=== PATIENT | male | born 1940 | race Caucasian/White ===

== ENCOUNTER 2018-08-15 12:43 | Outpatient (CLI) | payer MEDICARE | END 2018-08-15 12:44 | disposition short-term general hospital (02) | LOC: EMS 12:43 | PROVIDERS: ATTEND Surgery | DX: R07.9 Chest pain, unspecified (principal) | CPT/HCPCS: A0170; A0425; A0427 ==

== ENCOUNTER 2022-08-16 16:36 | Emergency (ER) | payer MEDICARE, OTHER ==
--- OUTSIDE RECORDS SUMMARY | 2022-08-16 16:50 | EXTERNAL MEDICAL SUMMARY RPT | Continuity of Care Document ---
:1940 Author Organization [facility] Address [address] [place] [address] Phone Care Team Providers Name Role Phone Unavailable Unavailable Unavailable Celio Mcelroy Md Unavailable Unavailable Allergies No information. Encounters No information. Functional Status No information. Immunizations No information. Medications date description facility 2022-08-16 00:00 [facility]ildenafil [facility] [place] 2022-08-16 00:00 sildenafil [facility] [place] 2022-08-16 00:00 sildenafil [facility] [place] 2022-08-16 00:00 sildenafil [facility] [place] Problems date description facility 2022-08-16 00:00 Atypical chest pain [facility] [place] 2022-08-16 00:00 Cough [facility] [place] 2022-08-16 00:00 Pulmonary congestion [facility] [place] 2022-08-16 00:00 Hemoptysis, unspecified [facility] [place] 2022-08-16 00:00 Other symptoms involving [facility] Anc[facility] S ervices [place] 2022-08-16 00:00 Hemoptysis [facility] [place] 2022-08-16 00:00 Acute cough [facility] [place] 2022-08-16 00:00 Other chest pain [facility] 2022-08-16 00:00 Other specified symptoms and signs [facility] & involving the circulatory and Anc[facility] Services [place] respiratory systems Procedures date description facility 2022-08-16 00:00 Visit Code Hold [facility] 2022-08-16 00:00 COVID, FLU A+B Antigen (In Clinic [facility] & Free Test) [facility] [place] Results/Labs No information. Social History date description facility 2022-08-16 00:00 Former smoker [facility] [place] Vital Signs date measurement value units 2022-08-16 00:00 BMI 27.54 kg/m2 2022-08-16 00:00 BP_diastolic 80 mmHg 2022-08-16 00:00 BP_systolic 147 mmHg 2022-08-16 00:00 heart_rate 87 /min 2022-08-16 00:00 height_metric 167.64 cm 2022-08-16 00:00 height_standard 66 in 2022-08-16 00:00 respiration_rate 16 /min 2022-08-16 00:00 temperature_metric 37.17 C 2022-08-16 00:00 temperature_standard 98.9 F 2022-08-16 00:00 weight_metric 77.11 kg 2022-08-16 00:00 weight_standard 170 lb
[2022-08-16 16:56] LABS: BASOPHILS % (AUTO) 0.4 %; EOSINOPHILS # (AUTO) 0.1 10^3/uL (0.0-0.7); EOSINOPHILS % (AUTO) 1.1 %; HCT - HEMATOCRIT 47.9 % (42.0-52.0); HGB - HEMOGLOBIN 15.7 g/dL (14.0-18.0); LYMPHOCYTES # (AUTO) 1.6 10^3/uL (1.5-3.5); LYMPHOCYTES % (AUTO) 14.3 %; MEAN CORPUSCULAR HEMOGLOBIN 32.2 pg (27.0-31.0); MEAN CORPUSCULAR HGB CONC 32.8 g/dL (32.0-36.0); MEAN CORPUSCULAR VOLUME 98.2 fL (80.0-94.0); MEAN PLATELET VOLUME 9.4 fL (7.4-11.4); MONOCYTES # (AUTO) 1.2 10^3/uL (0.0-1.0); MONOCYTES % (AUTO) 10.6 %; NEUTROPHILS # (AUTO) 8.1 10^3/uL (1.5-6.6); NEUTROPHILS % (AUTO) 73.2 %; PLT - PLATELET COUNT 382 10^3/uL (130-450); RED BLOOD COUNT 4.88 10^6/uL (4.70-6.10); RED CELL DISTRIBUTION WIDTH 12.5 % (12.0-15.0); WHITE BLOOD COUNT 11.1 x10^3/uL (4.8-10.8)
[2022-08-16 17:04] LABS: CALCIUM 9.3 mg/dL (8.5-10.3); CREATININE 1.1 mg/dL (0.6-1.2)
[2022-08-16] MEDS ORDERED: iohexoL-300 100 ML VIAL ONE (17:10)
[2022-08-16] MEDS ORDERED: iohexoL-300 100 ML VIAL IVP ONE (17:40)
--- NOTE | 2022-08-16 18:21 | CT Report ---
PROCEDURE: ANGIO CHEST W/WO INDICATIONS: hemoptysis, pe protocol CONTRAST: 80mL Gamt400 TECHNIQUE: After the administration of intravenous contrast, 2 mm axial images were acquired from the pulmonary apices to the posterior costophrenic angles during the arterial phase. In addition, 1 mm lung kernel and 5 mm soft tissue kernel reconstructions were performed. 3-dimensional coronal oblique maximum int ensity projection (MIP) reformats, 8 mm axial MIP, and 5 mm coronal and sagittal MPR reformats were t hen performed through the thorax. For radiation dose reduction, the following was used: automated exp osure control, adjustment of mA and/or kV according to patient size. COMPARISON: None. FINDINGS: Image quality: Excellent. Pulmonary arteries: Pulmonary arteries are normal in size, and demonstrate no intraluminal filling d efects to suggest central pulmonary embolism. Lungs and pleura: Within the superior aspect of the left lower lobe, masslike consolidation can be s een, measuring 4.4 x 4.4 cm in greatest axial dimension. Surrounding inflammatory/infiltrative change s can be seen. Adjacent pleural thickening can be seen. The lungs otherwise appear clear. No pleural effusions or pneumothorax. Central and peripheral airways are patent. Mediastinum: Heart size is normal, without pericardial effusion. Borderline enlarged mediastinal lym ph nodes are seen, with including an AP window lymph node measuring 16 x 9 mm. Thoracic aorta is norm al in caliber and enhancement. Moderate coronary artery calcification is seen. Esophagus is normal i n caliber, without hiatal hernia. Bones and chest wall: Mild sclerosis can be seen within the C7 vertebral body. Ribs and thoracic spin e appear intact throughout. No axillary or supraclavicular adenopathy. The thyroid is small in size . Abdomen: Gallstones can be seen, as on series 5 image 155 as well as at the fundus, as on series 5 im age 144. An accessory splenule is incidentally noted along the anterior aspect of the primary spleen . Along the posterior aspect of the left kidney, there is a low-density lesion seen that measures 20 Hounsfield units. The visualized portions of the upper abdominal structures are otherwise within nor mal limits. IMPRESSION: Negative for pulmonary embolism. There is a 4.4 cm mass involving the left lower lobe, which is highly suspicious for primary lung can cer. Borderline enlarged mediastinal lymph nodes are seen, which may represent metastatic disease. Mild sclerosis can be seen within the C7 vertebral body. Please consider degenerative change versus m etastatic disease. Along the posterior aspect of the left kidney, there is a low-density lesion seen, which cannot be de fined as a simple cyst, yet may relate to a hyperdense cyst. For further evaluation please consider a dedicated renal ultrasound for further evaluation. Additional findings: Moderate coronary artery calcification Gallstones Accessory splenule Note: Case discussed by telephone with Dr. Gann at 5:18 PM [place] time on 08/16/2022. Reviewed by: Huber Cobos MD on 08/16/2022 5:19 PM [place] Approved by: Huber Cobos MD on 08/16/2022 5:19 PM [facility] Station ID: [id number]
[2022-08-16] MEDS ORDERED: AMOX/CLAV 875 MG/125 MG TABLET PO STA (18:36)
[2022-08-16] MEDS ORDERED: DOXYCYCLINE 100 MG TABLET PO STA (18:36)
--- NOTE | 2022-08-16 18:38 | ED Physician Documentation ---
History of Present Illness - Stated complaint Stated Complaint: COUGH - Chief complaint Chief Complaint: Resp - History obtained from History obtained from: Patient - History of Present Illness Timing: How many weeks ago (4) Pain level max: 0 Pain level now: 0 - Additonal information Additional information: 81 year old male with cough and congestion for the past several weeks. Patient states he was recently treated with antibiotics. Patient states he recently had pneumonia. He went to the walk-in clinic today and told him that he was coughing up blood. He is not having any chest pain currently. No shortness of breath. He was sent here to rule out PE. No fevers. No chills. Nothing makes it better or worse Review of Systems Constitutional: denies: Fever, Chills Nose: reports: Rhinorrhea / runny nose, Congestion Respiratory: reports: Cough, Hemoptysis (Small amount of blood in the sputum). denies: Wheezing GI: denies: Vomiting, Diarrhea Skin: denies: Rash Musculoskeletal: denies: Neck pain, Back pain Neurologic: denies: Headache PD PAST MEDICAL HISTORY - Past Medical History Past Medical History: Yes : Other (Erectile dysfunction) - Present Medications Home Medications: Ambulatory Orders Medication Instructions Recorded Confirmed Amox/Clav 875/125 [Augmentin] 1 tab PO Q12H #20 tablet 08/16/22 Doxycycline Hyclate 100 mg PO BID #20 tab 08/16/22 - Allergies Allergies/Adverse Reactions: Allergies Allergy/AdvReac Type Severity Reaction Status Date / Time No Known Drug Allergies Allergy Verified 08/16/22 16:41 - Living Situation Living Situation: reports: With family Living Arrangement: reports: At home - Social History Does the pt smoke?: No Does the pt have substance abuse?: No PD ED PE NORMAL - Vitals Vital signs reviewed: Yes - General General: Alert and oriented X 3, No acute distress - HEENT HEENT: Moist mucous membranes - Neck Neck: Supple, no meningeal sign - Cardiac Cardiac: RRR, Strong equal pulses - Respiratory Respiratory: No respiratory distress, Clear bilaterally - Abdomen Abdomen: Soft, Non tender, Non distended - Derm Derm: Warm and dry - Extremities Extremities: No edema, No calf tenderness / cord - Neuro Neuro: Alert and oriented X 3 - Psych Psych: Normal mood, Normal affect Results - Vitals Vitals: Oxygen O2 Source Room air - Labs Labs: Laboratory Tests 08/16/22 08/16/22 16:50 16:50 WBC 11.1 H RBC 4.88 Hgb 15.7 Hct 47.9 MCV 98.2 H MCH 32.2 H MCHC 32.8 RDW 12.5 Plt Count 382 MPV 9.4 Neut # (Auto) 8.1 H Lymph # (Auto) 1.6 [place] # (Auto) 1.2 H Eos # (Auto) 0.1 Baso # (Auto) 0.0 Absolute Nucleated RBC 0.00 Nucleated RBC % 0.0 Sodium 137 Potassium 4.0 Chloride 101 Carbon Dioxide 27 Anion Gap 9.0 BUN 21 H Creatinine 1.1 Estimated GFR (MDRD) 65 L Glucose 125 H Calcium 9.3 - Rads (name of study) CT angio chest Radiology: Final report received, See rad report PD Medical Decision Making - ED course Complexity details: reviewed results, re-evaluated patient, considered differential, d/w patient ED course: Patient with an ongoing cough, concern regarding pneumonia from the walk-in clinic versus PE. He was sent here for CT angiogram of the chest. The CT angiogram of the chest shows what appears to be a mass in the left lower lung. Patient is still coughing and does appear to have inflammation around the mass in the left lower lung. We will place on antibiotics for possible pneumonia versus secondary infection. He does have a leukocytosis as well on CBC. His chemistry panel does not show any significant abnormalities other than a mildly elevated glucose and a mildly elevated BUN. Patient will need close follow-up with his PCP for further evaluation of the lung mass. Patient and family counseled regarding signs and symptoms for which I believe and urgent re- evaluation would be necessary. Patient with good understanding of and agreement to plan and is comfortable going home at this time This document was made in part using voice recognition software. While efforts are made to proofread this document, sound alike and grammatical errors may occur. Departure - Departure Disposition: 01 Home, Self Care Clinical Impression: Lung mass Pneumonia Qualifiers: Pneumonia type: due to unspecified organism Laterality: left Lung location: unspecified part of lung Qualified Code(s): J18.9 - Pneumonia, unspecified organism Condition: Good Instructions: ED Pneumonia Adult Follow-Up: your,doctor tomorrow [Other] Prescriptions: Amox/Clav 875/125 [Augmentin] 1 tab PO Q12H #20 tablet Doxycycline Hyclate 100 mg PO BID #20 tab Comments: Please follow-up with your doctor for further care. Please return if you worsen. Please take all antibiotics until gone. There does appear to be a mass on your chest CT today. This will need further evaluation with your doctor and likely a biopsy and a referral to a blow machine tender starch spraying. The CT reading is below. Your prescriptions were sent to [facility] in [place]. FINDINGS: Image quality: Excellent. Pulmonary arteries: Pulmonary arteries are normal in size, and demonstrate no intraluminal filling defects to suggest central pulmonary embolism. Lungs and pleura: Within the superior aspect of the left lower lobe, masslike consolidation can be seen, measuring 4.4 x 4.4 cm in greatest axial dimension. Surrounding inflammatory/infiltrative changes can be seen. Adjacent pleural thickening can be seen. The lungs otherwise appear clear. No pleural effusions or pneumothorax. Central and peripheral airways are patent. Mediastinum: Heart size is normal, without pericardial effusion. Borderline enlarged mediastinal lymph nodes are seen, with including an AP window lymph node measuring 16 x 9 mm. Thoracic aorta is normal in caliber and enhancement. Moderate coronary artery calcification is seen. Esophagus is normal in caliber, without hiatal hernia. Bones and chest wall: Mild sclerosis can be seen within the C7 vertebral body. Ribs and thoracic spine appear intact throughout. No axillary or supraclavicular adenopathy. The thyroid is small in size. Abdomen: Gallstones can be seen, as on series 5 image 155 as well as at the fundus, as on series 5 image 144. An accessory splenule is incidentally noted along the anterior aspect of the primary spleen. Along the posterior aspect of the left kidney, there is a low-density lesion seen that measures 20 Hounsfield units. The visualized portions of the upper abdominal structures are otherwise within normal limits. IMPRESSION: Negative for pulmonary embolism. There is a 4.4 cm mass involving the left lower lobe, which is highly suspicious for primary lung cancer. Borderline enlarged mediastinal lymph nodes are seen, which may represent metastatic disease. Mild sclerosis can be seen within the C7 vertebral body. Please consider degenerative change versus metastatic disease. Along the posterior aspect of the left kidney, there is a low-density lesion seen, which cannot be defined as a simple cyst, yet may relate to a hyperdense cyst. For further evaluation please consider a dedicated renal ultrasound for further evaluation. Additional findings: Moderate coronary artery calcification Gallstones Accessory splenule Discharge Date/Time: 08/16/22 18:52
[2022-08-16 18:51] VITALS: BP 145/79
== END 2022-08-16 18:52 | disposition home or self-care (01) ==
LOC: ED 16:36
DX: J18.9 Pneumonia, unspecified organism (principal); R91.8 Other nonspecific abnormal finding of lung field
CPT/HCPCS: 36415; 71275; 80048; 85025; 99284; A9270; Q9967

== ENCOUNTER 2023-02-26 08:02 | Emergency (ER) | payer OTHER ==
--- OUTSIDE RECORDS SUMMARY | 2023-02-26 08:41 | EXTERNAL MEDICAL SUMMARY RPT | Continuity of Care Document ---
Author Name Unknown Address [address] [place] [address] Phone Organization [facility] Address [address] [place] [address] Phone Care Team Providers Care Insulation Nozzleman Name Role Phone Unavailable Unavailable Unavailable Joreg Luis Elizondo Pa-C Unavailable Unavailable Luigi Patient Registrar, Akira Unavailable U navailable Luigi Patient Registrar, Akira Unavailable U navailable Medications date description facility 2023-02-16 00:00 sildenafil [facility] [place] 2023-02-16 00:00 [facility]enafil [facility] [place] 2023-02-17 00:00 [facility]ildenafil [facility] [place] 2023-02-16 00:00 sildenafil [facility] [place] 2023-02-16 00:00 sildenafil [facility] [place] 2023-02-17 00:00 sildenafil [facility] [place] 2023-02-16 00:00 sildenafil [facility] [place] 2023-02-16 00:00 sildenafil [facility] [place] 2023-02-17 00:00 sildenafil [facility] [place] 2023-02-16 00:00 sildenafil [facility] [place] 2023-02-16 00:00 sildenafil [facility] [place] 2023-02-17 00:00 sildenafil [facility] [place] Problems date description facility 2023-02-16 00:00 Blood in urine [facility] [place] 2023-02-16 00:00 Blood in urine [facility] [place] 2023-02-16 00:00 Blood in urine [facility] [place] 2023-02-16 00:00 Hematuria, unspecified [facility] [place] 2023-02-16 00:00 Hematuria, unspecified [facility] [place] 2023-02-16 00:00 Hematuria, unspecified [facility] [place] Procedures date description facility 2023-02-16 00:00 Visit Code Hold [facility] [place] 2023-02-16 00:00 Visit Code Hold [facility] [place] 2023-02-16 00:00 Visit Code Hold [facility] [place] 2023-02-16 00:00 POC URINALYSIS DIP [facility] [place] 2023-02-16 00:00 POC URINALYSIS DIP [facility] [place] 2023-02-16 00:00 POC URINALYSIS DIP [facility] [place] Results/Labs test date facility value unit notes Social History date description facility 2023-02-16 00:00 Former smoker [facility] [place] 2023-02-16 00:00 Former smoker [facility] [place] 2023-02-16 00:00 Former smoker [facility] [place] Vital Signs date measurement value units 2023-02-16 00:00 BMI 29.49 kg/m2 2023-02-16 00:00 BP_diastolic 81 mmHg 2023-02-16 00:00 BP_systolic 163 mmHg 2023-02-16 00:00 heart_rate 69 /min 2023-02-16 00:00 height_metric 167.64 cm 2023-02-16 00:00 height_standard 66 in 2023-02-16 00:00 respiration_rate 17 /min 2023-02-16 00:00 temperature_metric 36.56 C 2023-02-16 00:00 temperature_standard 97.8 F 2023-02-16 00:00 weight_metric 82.58 kg 2023-02-16 00:00 weight_standard 182.06 lb
[2023-02-26] MEDS ORDERED: iohexoL-300 100 ML VIAL ONE (09:10)
[2023-02-26 09:16] LABS: BILIRUBIN,URINE NEGATIVE (NEGATIVE); GLUCOSE, URINE (UA) NEGATIVE (NEGATIVE); KETONES,URINE (UA) NEGATIVE (NEGATIVE); LEUKOCYTE ESTERASE, URINE NEGATIVE (NEGATIVE); NITRITE,URINE NEGATIVE (NEGATIVE); OCCULT BLOOD,URINE NEGATIVE (NEGATIVE); PROTEIN,URINE NEGATIVE (NEGATIVE); UROBILINOGEN,URINE 0.2 (NORMAL) E.U./dL (NORMAL)
[2023-02-26 09:23] LABS: CLARITY,URINE CLEAR (CLEAR)
[2023-02-26 09:28] LABS: ALBUMIN 4.1 g/dL (3.2-5.5); ALBUMIN/GLOBULIN RATIO 1.3 (1.0-2.2); BILIRUBIN,TOTAL 0.7 mg/dL (0.2-1.0); CALCIUM 9.2 mg/dL (8.5-10.3); CREATININE 1.1 mg/dL (0.6-1.2); TOTAL PROTEIN 7.3 g/dL (6.7-8.2)
[2023-02-26 09:39] LABS: BASOPHILS % (AUTO) 0.6 %; EOSINOPHILS # (AUTO) 0.2 10^3/uL (0.0-0.7); EOSINOPHILS % (AUTO) 3.5 %; HCT - HEMATOCRIT 45.8 % (42.0-52.0); HGB - HEMOGLOBIN 15.4 g/dL (14.0-18.0); LYMPHOCYTES # (AUTO) 1.4 10^3/uL (1.5-3.5); LYMPHOCYTES % (AUTO) 22.3 %; MEAN CORPUSCULAR HEMOGLOBIN 32.7 pg (27.0-31.0); MEAN CORPUSCULAR HGB CONC 33.6 g/dL (32.0-36.0); MEAN CORPUSCULAR VOLUME 97.2 fL (80.0-94.0); MEAN PLATELET VOLUME 9.9 fL (7.4-11.4); MONOCYTES # (AUTO) 0.8 10^3/uL (0.0-1.0); MONOCYTES % (AUTO) 11.8 %; NEUTROPHILS # (AUTO) 3.9 10^3/uL (1.5-6.6); NEUTROPHILS % (AUTO) 61.5 %; PLT - PLATELET COUNT 232 10^3/uL (130-450); RED BLOOD COUNT 4.71 10^6/uL (4.70-6.10); RED CELL DISTRIBUTION WIDTH 12.6 % (12.0-15.0); WHITE BLOOD COUNT 6.3 x10^3/uL (4.8-10.8)
[2023-02-26] MEDS ORDERED: iohexoL-300 100 ML VIAL IVP ONE (10:48)
--- NOTE | 2023-02-26 11:05 | CT Report ---
PROCEDURE: IVP INDICATIONS: hematuria CONTRAST: 140ml omni 300 TECHNIQUE: After the administration of intravenous contrast, 5 mm thick sections acquired from the diaphragms to the symphysis. 5 mm thick coronal and sagittal reformats were acquired. For radiation dose reducti on, the following was used: automated exposure control, adjustment of mA and/or kV according to conrado ent size. COMPARISON: None. FINDINGS: Image quality: Excellent. Urinary system: Both kidneys are normal in size. No hydronephrosis or nephrolithiasis on pre-contras t images. No solid masses or complex cysts which require follow up. Nonenhancing left renal hypodens ities compatible with cysts. The opacified renal calyces and ureters appear normal, without filling d efect. Suggestion of mild urinary bladder wall thickening which may be related to incomplete distent ion. No significant perivesicular stranding. No calcified bladder stones. No filling defect within th e opacified bladder. OTHER Lung bases and heart: Mild bibasilar atelectasis. Mild cardiomegaly. Coronary artery atherosclerosis. Small hiatal hernia. Liver: No solid mass. Gallbladder and biliary tree: Cholelithiasis without wall thickening. No biliary dilation. Spleen: No splenomegaly. Pancreas: No pancreatic ductal dilation. Adrenals: No adrenal nodule. Bowel and peritoneum: No bowel distension. No pathologic free fluid. Abdominal Lymph nodes: No central or retroperitoneal adenopathy. Vessels: Atherosclerosis. No aneurysmal dilatation of the abdominal aorta. Reproductive organs: Unremarkable. Pelvic Lymph nodes: Unremarkable. Bones: No aggressive osseous abnormality. No acute compression fractures. Multilevel spondylosis of t he imaged spine. Other: None. IMPRESSION: No evidence for urolithiasis or obstructive uropathy. No hydronephrosis. Nonspecific mild circumferential urinary bladder wall thickening which may be related to incomplete d istention although cystitis may have a similar appearance if clinically appropriate. Recommend clinic al and laboratory correlation. No suspicious intraluminal filling defects within the opacified renal calyces, ureters, or urinary bl adder. Left renal cysts. Atherosclerosis. Reviewed by: Alvaro Hidalgo MD on 02/26/2023 10:04 AM [facility] Approved by: Alvaro Hidalgo MD on 02/26/2023 10:04 AM [email or web address] Station ID: [id number]
--- NOTE | 2023-02-26 11:26 | ED Physician Documentation ---
PD HPI MALE - Stated complaint Stated Complaint: MALE - Chief complaint Chief Complaint: Abd Pain - History obtained from History obtained from: Patient, Family () - History of Present Illness Timing - onset: How many months ago (1) Timing - duration: Seconds Timing - details: Abrupt onset, Now resolved Associated symptoms: Hematuria, Other (pain to the penis) Similar symptoms before: Has not had sx before Recently seen: Not recently seen - Additional information Additional information: 82-year-old Barb Fairbanks reports that over the past month he has had 3 separate episodes of hematuria. He reports that he will have a sudden onset of a severe pain that lasted maybe 2 seconds and following that he will have neisha blood. He states this occurs after urination he will have the neisha blood and then this will clear up. He has had an episode yesterday and he is in now for evaluation. He no longer has blood in his urine. He has an order from his primary care doctor to get a CT scan IVP and this has not been approved yet. Review of Systems Constitutional: denies: Fever Eyes: denies: Decreased vision Ears: denies: Ear pain Nose: denies: Congestion Throat: denies: Sore throat Cardiac: denies: Chest pain / pressure Respiratory: denies: Dyspnea, Cough GI: denies: Vomiting, Diarrhea : reports: Hematuria. denies: Dysuria, Frequency Skin: denies: Rash Musculoskeletal: denies: Neck pain, Back pain, Extremity pain PD PAST MEDICAL HISTORY - Past Medical History Past Medical History: Yes : Other - Present Medications Home Medications: Ambulatory Orders Medication Instructions Recorded Confirmed Amox/Clav 875/125 [Augmentin] 1 tab PO Q12H #20 tablet 08/16/22 Doxycycline Hyclate 100 mg PO BID #20 tab 08/16/22 - Allergies Allergies/Adverse Reactions: Allergies Allergy/AdvReac Type Severity Reaction Status Date / Time No Known Drug Allergies Allergy Verified 02/26/23 08:20 - Social History Does the pt smoke?: No Smoking Status: Never smoker Does the pt have substance abuse?: No PD ED PE NORMAL - Vitals Vital signs reviewed: Yes (Hypertensive) - General General: Alert and oriented X 3, No acute distress, Well developed/nourished - HEENT HEENT: Atraumatic, PERRL, EOMI - Neck Neck: Supple, no meningeal sign - Cardiac Cardiac: RRR, No murmur - Respiratory Respiratory: No respiratory distress, Clear bilaterally - Abdomen Abdomen: Normal bowel sounds, Soft, Non tender, Non distended, No organomegaly - Back Back: No CVA TTP, No spinal TTP - Derm Derm: Normal color, Warm and dry, No rash - Extremities Extremities: No deformity, No edema - Neuro Neuro: Alert and oriented X 3, counterintelligence analyst 2-12 intact, No motor deficit, No sensory deficit, Normal speech Eye Opening: Spontaneous Motor: Obeys Commands Verbal: Oriented GCS Score: 15 - Psych Psych: Normal mood Results - Vitals Vitals: Vital Signs - 24 hr 02/26/23 08:15 Temperature 36.4 C L Heart Rate 79 Respiratory 16 Rate Blood Pressure 165/67 H O2 Saturation 95 Oxygen O2 Source Room air - Labs Labs: Laboratory Tests 02/26/23 02/26/23 02/26/23 09:06 09:06 09:34 WBC 6.3 RBC 4.71 Hgb 15.4 Hct 45.8 MCV 97.2 H MCH 32.7 H MCHC 33.6 RDW 12.6 Plt Count 232 MPV 9.9 Neut # (Auto) 3.9 Lymph # (Auto) 1.4 L Fountain # (Auto) 0.8 Eos # (Auto) 0.2 Baso # (Auto) 0.0 Absolute Nucleated RBC 0.00 Nucleated RBC % 0.0 Sodium 140 Potassium 4.0 Chloride 108 Carbon Dioxide 26 Anion Gap 6.0 BUN 17 Creatinine 1.1 Estimated GFR (MDRD) 64 L Glucose 97 Calcium 9.2 Total Bilirubin 0.7 AST 22 ALT 20 Alkaline Phosphatase 82 Total Protein 7.3 Albumin 4.1 Globulin 3.2 Albumin/Globulin Ratio 1.3 Lipase 30 Urine Color YELLOW Urine Clarity CLEAR Urine pH 6.0 Ur Specific [place] 1.015 Urine Protein NEGATIVE Urine Glucose (UA) NEGATIVE Urine Ketones NEGATIVE Urine Occult Blood NEGATIVE Urine Nitrite NEGATIVE Urine Bilirubin NEGATIVE Urine Urobilinogen 0.2 (NORMAL) Ur Leukocyte Esterase NEGATIVE Ur Microscopic Review NOT INDICATED Urine Culture Comments NOT INDICATED - Rads (name of study) CT IVP Relevant Findings:: Prelim report reviewed (See below), EMP independent interpretation of test PD Medical Decision Making - ED course Reviewed Lab Results: We reviewed a complete blood count showing a normal white blood cell count, normal hemoglobin, hematocrit and platelets. Chemistries showed normal electrolytes, normal kidney and liver function and a urinalysis is completely clear with a specific gravity of 1.015. These benign laboratory results indicate a likely benign process and this is further confirmed with a CT IVP with the results shown below. Impression: No evidence for ureteral lithiasis or obstructive uropathy. No hydronephrosis. Nonspecific mild circumferential urinary bladder wall thickening which may be related to incomplete distention although cystitis may have a similar appearance if clinically appropriate. Recommend clinical and laboratory correlation. No suspicious intraluminal filling defects within the opacified renal calyces ureters or urinary bladder. Left renal cysts. Atherosclerosis. There is not an explanation for this patient's intermittent hematuria. There is reassuring findings of the urinary tract being clear of cancer and stones. I have asked the patient to follow-up with urology. 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 Departure - Departure Disposition: 01 Home, Self Care Clinical Impression: Hematuria Qualifiers: Hematuria type: gross Qualified Code(s): R31.0 - Gross hematuria Condition: Stable Instructions: ED Hematuria Follow-Up: BETTY NEWBY ARNP [Primary Care Provider] - Magdi Peres MD [Provider Admit Priv/Credential] - Comments: Tereso, today we did not find a specific reason for the blood in your urine. We were able to eliminate obvious cancers to the urinary tract. It looks like there is some thickening to the wall of the bladder and this can be from partial obstruction of the outlet like a problem with your prostate. My recommendation is to follow-up with the urologist Dr. Peres listed above. Today we found your blood counts and blood chemistries entirely normal. The urinalysis was entirely normal. This all looks like a young healthy 82-year-old.
[2023-02-26 12:00] VITALS: BP 128/56
== END 2023-02-26 12:00 | disposition home or self-care (01) ==
LOC: ED 08:02
DX: R31.0 Gross hematuria (principal)
CPT/HCPCS: 36415; 74178; 80053; 81003; 83690; 85025; 99283; 99284; Q9967; 81001; 87086